=== PATIENT | male | born 1950 | race Caucasian/White ===

== ENCOUNTER 2016-08-23 21:20 | Emergency (ER) | payer MEDICARE, OTHER ==
[~2016-08-23] VITALS: Ht 182.9 cm; Wt 95.0 kg
[2016-08-23 21:27] VITALS: BP 162/86; PULSE 82; RESP 18; TEMP 98.5; O2SAT 95
[2016-08-23] MEDS ORDERED: HYDR-3583 PO (21:35)
[2016-08-23] MEDS ORDERED: DIAZ10 PO (21:35)
[2016-08-23] MEDS ORDERED: ASPI81CH CHEW (21:35)
[2016-08-23] MEDS ORDERED: LEXA20TA PO (21:35)
[2016-08-23] MEDS ORDERED: TETANUS/DIPHTHERIA TOXOID ADULT 0.5 ML VIAL IM ONE (21:45)
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
[2016-08-23] MEDS ORDERED: SODIUM CHLOR 0.9% 1000 ML INJ 1,000 ML IV SCH (21:52)
--- NOTE | 2016-08-23 22:08 | RADRPT ---
EXAM DATE/TIME: 08/23/2016 21:52 [facility] COMPARISON: No previous studies available for comparison. INDICATIONS : Witnessed fall RADIATION DOSE: 69.15 CTDIvol (mGy) MEDICAL HISTORY : Myocardial infarction. Hypertension. SURGICAL HISTORY : None. ENCOUNTER: Initial ACUITY: 1 day PAIN SCALE: 3/10 LOCATION: cranial TECHNIQUE: Multiple contiguous axial images were obtained of the head. Using automated exposure control and adj ustment of the mA and/or kV according to patient size, radiation dose was kept as low as reasonably a chievable to obtain optimal diagnostic quality images. FINDINGS: Noncontrast axial head CT demonstrates the ventricles to be normal in size and configuration with a n ormal sulcal pattern. No acute intracranial hemorrhage, acute cortical infarction, mass or midline sh ift is seen. There is hypodensity within the right basal ganglia which may reflect lacunar infarct ag e uncertain. Posterior fossa structures are unremarkable. Bone windows are unremarkable. CONCLUSION: 1. Lacunar infarct right basal ganglia age uncertain. Saad Hagen MD on August 23, 2016 at 22:05 Board Certified Radiologist. This report was verified electronically.
--- NOTE | 2016-08-23 22:22 | RADRPT ---
EXAM DATE/TIME: 08/23/2016 21:54 [facility] COMPARISON: No previous studies available for comparison. INDICATIONS : Witnessed fall RADIATION DOSE: 35.52 CTDIvol (mGy) MEDICAL HISTORY : Myocardial infarction. Hypertension. SURGICAL HISTORY : Fusion, cervical. ENCOUNTER: Initial ACUITY: 1 day PAIN SCALE: 3/10 LOCATION: neck TECHNIQUE: Volumetric scanning of the cervical spine was performed. Multiplanar reconstructions in the sagittal, coronal and oblique axial planes were performed. Using automated exposure control and adjustment o f the mA and/or kV according to patient size, radiation dose was kept as low as reasonably achievable to obtain optimal diagnostic quality images. FINDINGS: Sagittal images demonstrate normal vertebral body alignment and curvature. The odontoid is intact. Th e occipital condyles and lateral masses of C1 are intact. Axial images were performed from C2-C3 to C7-T1. There is anterior cervical fusion with a plate anteriorly from C4-C6 with posterior fusion at C5-C6. There is osteorathritis involving the atlantoaxial joint with sclerosis and osteophyte format ion. C2-C3: There is mild facet arthritis bilaterally. There is no significant spinal canal stenosis. C3-C4: There is osteophytic ridging along the posterior aspect of vertebral body. There is moderate facet ar thritis on the right. There is mild right sided neural foraminal narrowing. C4-C5: Postsurgical changes as above. There is no significant spinal canal stenosis. C5-C6: Postsurgical changes as above. There is no significant spinal canal stenosis. C6-C7: No significant abnormalities identified. C7-T1: No significant abnormalities identified. CONCLUSION: 1. Postsurgical changes as above. There is no evidence of acute fracture. Saad Hagen MD on August 23, 2016 at 22:17 Board Certified Radiologist. This report was verified electronically.
[2016-08-23 22:25] LABS: AUTOMATED NEUTROPHIL # 3.6 TH/MM3 (1.8-7.7); BASOPHIL % 0.6 % (0.0-2.0); EOSINOPHIL # 0.2 TH/MM3 (0-0.4); EOSINOPHIL % 3.8 % (0.0-4.0); HEMATOCRIT 37.4 % (39.0-51.0); HEMO FLAGS DIFF FINAL; LYMPH % 24.9 % (9.0-44.0); LYMPHOCYTE # 1.5 TH/MM3 (1.0-4.8); MEAN CELL VOLUME 92.8 FL (80.0-100.0); MEAN CORPUSCULAR HEMOGLOBIN 31.4 PG (27.0-34.0); MEAN CORPUSCULAR HGB CONC 33.9 % (32.0-36.0); MONO % 9.8 % (0.0-8.0); NEUT % 60.9 % (16.0-70.0); PLATELET COUNT 159 TH/MM3 (150-450); RED BLOOD COUNT 4.03 MIL/MM3 (4.50-5.90); RED CELL DISTRIBUTION WIDTH 13.4 % (11.6-17.2); WHITE BLOOD COUNT 5.9 TH/MM3 (4.0-11.0)
[2016-08-23 22:30] LABS: APTT (PATIENT) 25.4 SEC (24.3-30.1); PROTHROMBIN TIME - PATIENT 10.6 SEC (9.8-11.6)
--- NOTE | 2016-08-23 22:45 | RADRPT ---
EXAM DATE/TIME: 08/23/2016 22:21 [facility] COMPARISON: No previous studies available for comparison. INDICATIONS : Evaluate lung status. Patient fell. MEDICAL HISTORY : Myocardial infarction. Hypertension. SURGICAL HISTORY : Fusion, Cervical. ENCOUNTER: Initial ACUITY: 1 day PAIN SCORE: Non-responsive. LOCATION: Bilateral chest FINDINGS: The cardiac silhouette is enlarged in transverse diameter. There are findings of congestive heart kalpesh lure with interstitial and alveolar opacity bilaterally. CONCLUSION: 1. Cardiomegaly and findings of congestive heart failure. Saad Hagen MD on August 23, 2016 at 22:43 Board Certified Radiologist. This report was verified electronically.
[2016-08-23 23:04] LABS: BICARBONATE 24.7 MEQ/L (21.0-32.0); MAGNESIUM 2.3 MG/DL (1.5-2.5); POTASSIUM 4.1 MEQ/L (3.5-5.1)
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
[2016-08-24 03:43] VITALS: BP 152/70; PULSE 65; RESP 18; O2SAT 98
[2016-08-24 03:58] LABS: AMPHETAMINE, URINE NEG (NEG); BARBITURATES, URINE NEG (NEG); COCAINE, URINE NEG (NEG)
--- NOTE | 2016-08-24 14:31 | EKG ---
Date Performed: 08/23/2016 Time Performed: 21:31:34 PTAGE: 66 years EKG: Sinus rhythm POSSIBLE INFERIOR MYOCARDIAL INFARCTION Diffuse mild ST elevation, possibly early repolarization ABN ORMAL ECG NO PRIOR TRACING FOR COMPARISON DOCTOR: Rudy Wagner Interpretating Date/Time 08/24/2016 14:30:45
== END 2016-08-24 06:52 | disposition home or self-care (01) ==
LOC: NEPE 21:20
DX: F19.920 Other psychoactive substance use, unspecified with intoxication, uncomplicated (principal); S09.90XA Unspecified injury of head, initial encounter; R94.31 Abnormal electrocardiogram [ECG] [EKG]; I10 Essential (primary) hypertension; E78.00 Pure hypercholesterolemia, unspecified; I25.2 Old myocardial infarction; F17.200 Nicotine dependence, unspecified, uncomplicated; Z79.82 Long term (current) use of aspirin; Z86.59 Personal history of other mental and behavioral disorders; X58.XXXA Exposure to other specified factors, initial encounter
CPT/HCPCS: 70450; 71010; 72125; 80048; 80307; 83735; 84484; 85025; 85610; 85730; 90471; 90714; 93005; 99284; J7030

== ENCOUNTER 2016-11-21 15:39 | Emergency (ER) | payer MEDICARE, OTHER ==
[~2016-11-21] VITALS: Ht 182.9 cm; Wt 92.3 kg
[~2016-11-21 15:39] MED LIST: ASPI81CH CHEW; DIAZ10 PO; HYDR-3583 PO; LEXA20TA PO
[2016-11-21 16:20] VITALS: BP 180/83; PULSE 72; RESP 18; TEMP 98.2; O2SAT 99
[2016-11-21] MEDS ORDERED: TETANUS/DIPHTHERIA TOXOID ADULT 0.5 ML VIAL IM ONE (17:30)
--- NOTE | 2016-11-21 17:31 | PD ---
HPI Chief Complaint: Fall Time Seen by Provider: 17:16 Travel History International Travel<30 days: No Contact w/Intl Traveler<30days: No Traveled to known affect area: No History of Present Illness HPI 66-year-old male complains of headache, facial pain and neck pain. Patient fell on his face 6 days ago. Patient states that he did not loose consciousness. Patient states that he had persistent headache patient pain and neck pain since then. Patient states that he has blurred vision after the fall. Patient states that the blurred vision is getting better since then. Patient has history of chronic neck pain status post neck surgery in the past. Patient denies any chest pain or shortness of breath. Patient denies abdominal pain. Patient denies any focal weakness or numbness of extremity. Patient states that he drinks alcohol frequently. Patient is taking aspirin 81 mg daily , hydrocodone 10, Lexapro and Valium daily. Patient denies any illicit drug abuse. Patient states that he is not up-to-date with TD booster. Patient states that he's had been eating drinking well. Patient states that he has dizziness today. PFSH Past Medical History Anxiety: Yes High Cholesterol: Yes Hypertension: Yes Myocardial Infarction: Yes Past Surgical History Other Surgery: Yes (lung ) Social History Alcohol Use: Yes Tobacco Use: Yes (1 ppd ) Substance Use: Yes (marijuana) Allergies-Medications (Allergen,Severity, Reaction): Coded Allergies: No Known Allergies (Unverified , 08/23/16) Reported Meds & Prescriptions Reported Meds & Active Scripts Active Reported Valium (Diazepam) 10 Mg Tab 15 Mg PO TID PRN Lexapro (Escitalopram Oxalate) 20 Mg Tab 20 Mg PO DAILY Hydrocodone-Acetaminophen 10-325 mg Tab 1 Tab PO Q6H PRN Aspirin 81 Mg Chew 81 Mg CHEW DAILY Review of Systems General / Constitutional: No: Fever Eyes: No: Visual changes HENT: Positive: Headaches, Neck Pain Cardiovascular: No: Chest Pain or Discomfort Respiratory: No: Shortness of Breath Gastrointestinal: No: Abdominal Pain Genitourinary: No: Dysuria Musculoskeletal: No: Pain Skin: No Rash Neurologic: No: Weakness Psychiatric: No: Depression Endocrine: No: Polydipsia Hematologic/Lymphatic: No: Easy Bruising Physical Exam Narrative GENERAL: Well-nourished, well-developed patient. SKIN: Focused skin assessment warm/dry. HEAD: Normocephalic. Multiple abrasions to the forehead the cheek and the nose. Mild ecchymosis noted periorbital area right eye. Mild tenderness on palpation of the nose. No deformity of the nose. No septal hematoma. EYES: No scleral icterus. No injection or drainage. Pupils 2 mm equal reactive. NECK: Supple, trachea midline. No JVD or lymphadenopathy. Mild tenderness on palpation paraspinal areas cervical spine. No midline tenderness. CARDIOVASCULAR: Regular rate and rhythm without murmurs, gallops, or rubs. RESPIRATORY: Breath sounds equal bilaterally. No accessory muscle use. GASTROINTESTINAL: Abdomen soft, non-tender, nondistended. MUSCULOSKELETAL: No cyanosis, or edema. BACK: Nontender without obvious deformity. No CVA tenderness. Neurologic exam: Patient is awake and alert oriented 3. Patient moves all extremity well. No obvious focal neurological deficit. Data Data Last Documented VS Vital Signs Date Time Temp Pulse Resp B/P Pulse Ox O2 Delivery O2 Flow Rate FiO2 11/21/16 17:44 96 11/21/16 16:20 98.2 72 18 180/[address] Brain W/O Iv Contrast(Rout) (11/21/16 17:24) Ct Cerv Spine W/O Contrast (11/21/16 17:24) Ct Facial Bones W/O Iv Cont (11/21/16 17:24) Tetanus/Diphtheria Tox Adult (Tetanus/Di (11/21/16 17:30) Complete Blood Count With Diff (11/21/16 17:28) Basic Metabolic Panel (Bmp) (11/21/16 17:28) Iv Access Insert/Monitor (11/21/16 17:28) Ecg Monitoring (11/21/16 17:28) Oximetry (11/21/16 17:28) Labs Laboratory Tests Test 11/21/16 17:57 White Blood Count 4.1 TH/MM3 Red Blood Count 3.83 MIL/MM3 Hemoglobin 12.6 GM/DL Hematocrit 36.0 % Mean Corpuscular Volume 94.2 FL Mean Corpuscular Hemoglobin 33.0 PG Mean Corpuscular Hemoglobin 35.0 % Concent Red Cell Distribution Width 12.5 % Platelet Count 167 TH/MM3 Mean Platelet Volume 7.4 FL Neutrophils (%) (Auto) 65.6 % Lymphocytes (%) (Auto) 21.4 % Monocytes (%) (Auto) 9.0 % Eosinophils (%) (Auto) 3.6 % Basophils (%) (Auto) 0.4 % Neutrophils # (Auto) 2.7 TH/MM3 Lymphocytes # (Auto) 0.9 TH/MM3 Monocytes # (Auto) 0.4 TH/MM3 Eosinophils # (Auto) 0.1 TH/MM3 Basophils # (Auto) 0.0 TH/MM3 CBC Comment DIFF FINAL Differential Comment Sodium Level 141 MEQ/L Potassium Level 3.8 MEQ/L Chloride Level 106 MEQ/L Carbon Dioxide Level 28.5 MEQ/L Anion Gap 7 MEQ/L Blood Urea Nitrogen 20 MG/DL Creatinine 0.98 MG/DL Estimat Glomerular Filtration 76 ML/MIN Rate Random Glucose 109 MG/DL Calcium Level 8.5 MG/DL MDM Medical Decision Making Medical Screen Exam Complete: Yes Emergency Medical Condition: Yes Interpretation(s) 1833 PM. CBC within normal limit. BMP within normal limit. BUN 20. Differential Diagnosis Differential diagnosis including abrasion, contusion, fracture, intracranial hemorrhage. Narrative Course 66-year-old male with head injury, facial injury, neck injury. Status post fall 6 days ago. TD booster given. Timothy Roy MD Nov 21, 2016 17:31
[2016-11-21 17:44] VITALS: O2SAT 96
[2016-11-21 18:04] LABS: AUTOMATED NEUTROPHIL # 2.7 TH/MM3 (1.8-7.7); BASOPHIL % 0.4 % (0.0-2.0); EOSINOPHIL # 0.1 TH/MM3 (0-0.4); EOSINOPHIL % 3.6 % (0.0-4.0); HEMO FLAGS DIFF FINAL; LYMPH % 21.4 % (9.0-44.0); LYMPHOCYTE # 0.9 TH/MM3 (1.0-4.8); MEAN CELL VOLUME 94.2 FL (80.0-100.0); NEUT % 65.6 % (16.0-70.0); PLATELET COUNT 167 TH/MM3 (150-450); RED BLOOD COUNT 3.83 MIL/MM3 (4.50-5.90); RED CELL DISTRIBUTION WIDTH 12.5 % (11.6-17.2); WHITE BLOOD COUNT 4.1 TH/MM3 (4.0-11.0)
[2016-11-21 18:23] LABS: POTASSIUM 3.8 MEQ/L (3.5-5.1)
[2016-11-21 18:26] LABS: BICARBONATE 28.5 MEQ/L (21.0-32.0)
[2016-11-21 18:34] VITALS: BP 150/72; PULSE 66; O2SAT 95
--- NOTE | 2016-11-21 18:47 | RADRPT ---
EXAM DATE/TIME: 11/21/2016 18:34 [facility] COMPARISON: CT BRAIN W/O CONTRAST, August 23, 2016, 21:52. INDICATIONS : Fell on face. RADIATION DOSE: 62.76 CTDIvol (mGy) MEDICAL HISTORY : Myocardial infarction. Hypertension. SURGICAL HISTORY : Fusion, cervical. ENCOUNTER: Initial ACUITY: 4 - 6 days PAIN SCALE: 3/10 LOCATION: Right cranial TECHNIQUE: Multiple contiguous axial images were obtained of the head. Using automated exposure control and adj ustment of the mA and/or kV according to patient size, radiation dose was kept as low as reasonably a chievable to obtain optimal diagnostic quality images. DICOM format image data is available electro nically for review and comparison. FINDINGS: CEREBRUM: The ventricles are normal for age. No evidence of midline shift, mass lesion, hemorrhage or acute in farction. No extra-axial fluid collections are seen. Subcentimeter old infarct in the right basal ga nglia again noted. POSTERIOR FOSSA: The cerebellum and brainstem are intact. The 4th ventricle is midline. The cerebellopontine angle i s unremarkable. EXTRACRANIAL: The visualized portion of the orbits is intact. SKULL: The calvaria is intact. No evidence of skull fracture. CONCLUSION: No bleed or other acute abnormality. Elder Hugo MD on November 21, 2016 at 18:44 Board Certified Radiologist. This report was verified electronically.
--- NOTE | 2016-11-21 18:55 | RADRPT ---
EXAM DATE/TIME: 11/21/2016 18:34 [facility] COMPARISON: No previous studies available for comparison. INDICATIONS : Fell on face. RADIATION DOSE: 25.78 CTDIvol (mGy) MEDICAL HISTORY : Myocardial infarction. Hypertension. SURGICAL HISTORY : Fusion, cervical. ENCOUNTER: Initial ACUITY: 4 - 6 days PAIN SCORE: 3/10 LOCATION: Right facial TECHNIQUE: Volumetric scanning of the facial bones was performed. Using automated exposure control and adjustme nt of the mA and/or kV according to patient size, radiation dose was kept as low as reasonably achiev able to obtain optimal diagnostic quality images. DICOM format image data is available electronicall y for review and comparison. FINDINGS: ORBITS: The orbital and infraorbital osseous structures are intact. The retroconal structures have a normal configuration. No radiopaque foreign bodies are seen. NASAL BONE: There is a comminuted fracture the tip at the nasion and both sides of the nasal arch. There are coup le millimeters of rightward displacement and the left side of the nasal arch has about 3 mm of depres melva/overlap. ZYGOMATIC ARCHES: Symmetric without evidence of fracture. SINUSES: The maxillary, ethmoid and frontal sinuses are intact. No air-fluid levels seen. NASAL CAVITY: The nasal septum is intact and midline. The lacrimal ducts are intact. SOFT TISSUES: No radiopaque foreign bodies seen. No soft-tissue swelling is seen. INTRACRANIAL: No intracranial air seen. CRIBIFORM PLATE: Grossly intact. CONCLUSION: Comminuted and mildly displaced/depressed fracture of the nose. Elder Hugo MD on November 21, 2016 at 18:52 Board Certified Radiologist. This report was verified electronically.
[2016-11-21 18:59] VITALS: BP 162/78; PULSE 71; RESP 16; O2SAT 96
--- NOTE | 2016-11-21 19:01 | RADRPT ---
EXAM DATE/TIME: 11/21/2016 18:34 [facility] COMPARISON: CT CERVICAL SPINE W/O CONTRAST, August 23, 2016, 21:54. INDICATIONS : Fell on face. RADIATION DOSE: 26.65 CTDIvol (mGy) MEDICAL HISTORY : Myocardial infarction. Hypertension. SURGICAL HISTORY : Fusion, cervical. ENCOUNTER: Initial ACUITY: 4 - 6 days PAIN SCALE: 3/10 LOCATION: neck TECHNIQUE: Volumetric scanning of the cervical spine was performed. Multiplanar reconstructions in the sagittal, coronal and oblique axial planes were performed. Using automated exposure control and adjustment o f the mA and/or kV according to patient size, radiation dose was kept as low as reasonably achievable to obtain optimal diagnostic quality images. DICOM format image data is available electronically f or review and comparison. FINDINGS: VERTEBRAE: Normal vertebral body height. ALIGNMENT: No evidence of subluxation. There is moderate to severe osteoarthritis anteriorly at C1/C2. C1 ring is discontinuous posteriorly, unchanged and appears developmental. Changes of discectomy and fusion procedure with anterior instrumentation again seen at C4/C5 and C5/C 6, both levels solidly bridged in unchanged, normal alignment. There is bilateral posterior instrumen tation at C5/C6. Mild disc space narrowing and moderate uncovertebral and facet osteoarthritis seen at C2/C3 and C3/C4 . There is mild disc space narrowing and mild bilateral uncovertebral and facet osteoarthritis at C6/ C7. CONCLUSION: 1. No fracture or subluxation of the cervical spine. 2. Focal discontinuity posteriorly of the C1 ring, unchanged and appears developmental. 3. Surgical and chronic degenerative changes as above. Elder Hugo MD on November 21, 2016 at 18:56 Board Certified Radiologist. This report was verified electronically.
--- NOTE | 2016-11-21 19:36 | PD ---
Physical Exam Date Seen by Provider: Nov 21, 2016 Time Seen by Provider: 19:10 Narrative Accepted in transfer of care from Dr. Roy Data Data Last Documented VS Vital Signs Date Time Temp Pulse Resp B/P Pulse Ox O2 Delivery O2 Flow Rate FiO2 11/21/16 19:00 16 96 Room Air 11/21/16 18:59 71 162/78 11/21/16 16:[address] Brain W/O Iv Contrast(Rout) (11/21/16 17:24) Ct Cerv Spine W/O Contrast (11/21/16 17:24) Ct Facial Bones W/O Iv Cont (11/21/16 17:24) Tetanus/Diphtheria Tox Adult (Tetanus/Di (11/21/16 17:30) Complete Blood Count With Diff (11/21/16 17:28) Basic Metabolic Panel (Bmp) (11/21/16 17:28) Iv Access Insert/Monitor (11/21/16 17:28) Ecg Monitoring (11/21/16 17:28) Oximetry (11/21/16 17:28) Labs Laboratory Tests Test 11/21/16 17:57 White Blood Count 4.1 TH/MM3 Red Blood Count 3.83 MIL/MM3 Hemoglobin 12.6 GM/DL Hematocrit 36.0 % Mean Corpuscular Volume 94.2 FL Mean Corpuscular Hemoglobin 33.0 PG Mean Corpuscular Hemoglobin 35.0 % Concent Red Cell Distribution Width 12.5 % Platelet Count 167 TH/MM3 Mean Platelet Volume 7.4 FL Neutrophils (%) (Auto) 65.6 % Lymphocytes (%) (Auto) 21.4 % Monocytes (%) (Auto) 9.0 % Eosinophils (%) (Auto) 3.6 % Basophils (%) (Auto) 0.4 % Neutrophils # (Auto) 2.7 TH/MM3 Lymphocytes # (Auto) 0.9 TH/MM3 Monocytes # (Auto) 0.4 TH/MM3 Eosinophils # (Auto) 0.1 TH/MM3 Basophils # (Auto) 0.0 TH/MM3 CBC Comment DIFF FINAL Differential Comment Sodium Level 141 MEQ/L Potassium Level 3.8 MEQ/L Chloride Level 106 MEQ/L Carbon Dioxide Level 28.5 MEQ/L Anion Gap 7 MEQ/L Blood Urea Nitrogen 20 MG/DL Creatinine 0.98 MG/DL Estimat Glomerular Filtration 76 ML/MIN Rate Random Glucose 109 MG/DL Calcium Level 8.5 MG/DL [facility] Medical Record Reviewed: Yes Supervised Visit with JESSIE: No Interpretation(s) Last Impressions Maxillofacial CT 11/21/161723 Signed Impressions: Service Date/Time: Monday, November 21, 2016 18:34 - CONCLUSION: Comminuted and mildly displaced/depressed fracture of the nose. Elder Hugo MD Head CT 11/21/161723 Signed Impressions: Service Date/Time: Monday, November 21, 2016 18:34 - CONCLUSION: No bleed or other acute abnormality. Elder Hugo MD Cervical Spine CT 11/21/161723 Signed Impressions: Service Date/Time: Monday, November 21, 2016 18:34 - CONCLUSION: 1. No fracture or subluxation of the cervical spine. 2. Focal discontinuity posteriorly of the C1 ring, unchanged and appears developmental. 3. Surgical and chronic degenerative changes as above. Elder Hugo MD Differential Diagnosis Accepted in transfer of care from Dr. Roy; please refer to his dictation Narrative Course Accepted in transfer of care from Dr. Roy; follow up on pending diagnostics and disposition Lab values grossly within acceptable normal range; imaging studies revealed no acute bony abnormalities except for mildly displaced/depressed nasal fracture. Patient's injuries reportedly occurred 6 days ago and presents with healing abrasions to the face. Patient has no epistaxis. Patient's tetanus status is updated. Patient is informed of imaging results and told not to blow his nose. 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 Patient is encouraged to follow head injury precautions 24 hours. Diagnosis Primary Impression: Nasal bone fracture Qualified Code: S02.2XXA - Closed fracture of nasal bone, initial encounter Additional Impressions: Head injury Qualified Code: S09.90XA - Injury of head, initial encounter Cervical strain Qualified Code: S16.1XXA - Strain of neck muscle, initial encounter Referrals: Ear / Nose / Throat Specialist call for appointment faculty i on call medical assistant MD: Dr Nazario --call office to schedule follow up Family Practice Physician 2 days Patient Instructions: General Instructions Additional Instruction: Follow head injury precautions 24 hours Follow-up with your primary care provider call office name to schedule follow- up appointment this week Follow-up with deaf/hard of hearing specialist call office to schedule follow-up ; on-call physician is Dr. Nazario or make follow-up per year primary care providers ENT recommendation Increase fluid hydration with non-alcoholic beverages Return to the emergency department for any concerns or change in condition Disposition: 01 DISCHARGE HOME Condition: Stable Mary Jo Chacko MD Nov 21, 2016 19:36
== END 2016-11-21 19:55 | disposition home or self-care (01) ==
LOC: PHED 15:39
DX: S02.2XXA Fracture of nasal bones, initial encounter for closed fracture (principal); S16.1XXA Strain of muscle, fascia and tendon at neck level, initial encounter; R42 Dizziness and giddiness; W19.XXXA Unspecified fall, initial encounter; Y93.9 Activity, unspecified; Y92.9 Unspecified place or not applicable; I25.2 Old myocardial infarction; I10 Essential (primary) hypertension; F17.210 Nicotine dependence, cigarettes, uncomplicated
CPT/HCPCS: 70450; 70486; 72125; 80048; 85025; 90471; 90714

== ENCOUNTER 2018-01-11 13:06 | Observation (INO) ==
[2018-01-11 14:10] LABS: Baso % (Auto) 0.2 % (0.0-2.0); Eos # (Auto) 0.1 th/mm3 (0.0-0.4); Eos % (Auto) 1.9 % (0.0-4.0); Hematocrit 37.9 % (39.0-51.0); Lymph # (Auto) 0.9 th/mm3 (1.0-4.8); Lymph % (Auto) 14.7 % (9.0-44.0); Mean Corpuscular HGB Conc 34.3 % (32.0-36.0); Mean Corpuscular Hemoglobin 33.3 pg (27.0-34.0); Mean Platelet Volume 7.8 fL (7.0-11.0); Mono # (Auto) 0.6 th/mm3 (0.0-0.9); Mono % (Auto) 9.9 % (0.0-8.0); Neut # (Auto) 4.4 th/mm3 (1.8-7.7); Neut % (Auto) 73.3 % (16.0-70.0); Platelet Count 135 th/mm3 (150-450); Red Blood Count 3.91 mil/mm3 (4.50-5.90); Red Cell Distribution Width 12.9 % (11.6-17.2)
[2018-01-11 14:29] LABS: Albumin 3.2 g/dL (3.4-5.0); Anion Gap 8 meq/L (5-15); Aspartate Aminotransferase 26 U/L (15-37); Blood Urea Nitrogen 14 mg/dL (7-18); Calcium 8.8 mg/dL (8.5-10.1); Carbon Dioxide 27.2 meq/L (21.0-32.0); Chloride 102 meq/L (98-107); Glomerular Filtration Rate 82 mL/min (>89); Glucose,Random 133 mg/dL (74-106); Potassium 4.2 meq/L (3.5-5.1); Sodium 137 meq/L (136-145)
[2018-01-11 14:31] LABS: Alanine Aminotransferase 31 U/L (12-78)
[2018-01-11 14:34] LABS: Alkaline Phosphatase 151 U/L (45-117); Total Protein 6.9 g/dL (6.4-8.2)
--- NOTE | 2018-01-11 16:28 | XR ---
EXAM DATE: 01/11/2018 1:40 PM EDT AGE/SEX: 67 years / Male INDICATIONS: . Bite on patients right posterior shoulder. CLINICAL DATA: This is the patient's initial encounter. Patient reports that signs and symptoms have been present for 2 days and indicates a pain score of 3/10. MEDICAL/SURGICAL HISTORY: . Myocardial infarction. Hypertension. . Fusion, cervical. COMPARISON: POI, XR CHEST PA AND LAT, 08/14/2017. . FINDINGS: There is stable posterior eventration of the right diaphragm. Mild patchy interstitial prominence. No evidence of focal alveolar consolidation or significant effusion. Cardiac contours are satisfactory. Thoracic skeleton is grossly intact. CONCLUSION: No acute disease Electronically signed by: Elder Guillen MD 01/11/2018 4:26 PM EDT
[2018-01-11] MEDS ORDERED: Tetanus/Diphtheria Toxoid Adult Vaccine Inj 0.5 ML Vial IM ONE (18:17)
--- NOTE | 2018-01-11 18:23 | ED ---
HPI General Chief Complaint: Chest Pain Stated Complaint: bite Time Seen by Provider: 01/11/18 16:47 Source: patient, RN notes reviewed and old records reviewed Mode of arrival: ambulatory Limitations: no limitations History of Present Illness HPI narrative: 67-year-old male presenting with complaint of left chest pressure since 4 AM patient stated that he experienced a bug bite on his right upper back yesterday and now he is having hot flashes nausea and vomiting. He denies any shortness of breath no nausea vomiting. No mouth swelling. No hives or pruritus. MD complaint: Reports chest pain STEMI Alert: No Onset (ago): hour(s) (12) Duration: constant Onset: during rest Pain location: Reports left chest Severity: mild Severity scale (1-10): 4 Quality: Reports other (Pressure) Pain radiation: Reports LUE Relieving factors: nothing Exacerbating factors: nothing Associated symptoms: Reports nausea and vomiting Treatments prior to arrival chest pain: Reports none and other (took benadryl without any relief) Related Data Home Medications Medication Instructions Recorded Confirmed atorvastatin 20 mg PO DAILY 01/11/18 01/11/18 Allergies Allergy/AdvReac Type Severity Reaction Status Date / Time tramadol Allergy Intermediate Swelling Verified 01/11/18 18:07 Review of Systems ROS: all other systems reviewed are negative [facility] Medical History Medical History Cervical vertebral fusion (Acute) FHx: cholecystectomy (Acute) High cholesterol (Acute) Surgical History Surgical History H/O knee surgery (Acute) H/O shoulder surgery (Acute) History of lung surgery (Acute) S/P hernia surgery (Acute) Social History Social History Substance History: No History of Abuse Second Hand Smoke Exposure: Yes Smoking Status: Current every day smoker Tobacco Type: Cigarettes How Often Do You Have a Drink Containing Alcohol: 4 or more times a week Recent Travel in [facility] within the Last 8 Weeks: No Recent Out of Country Travel within the Last 8 Weeks: No Immunization History Tetanus Immunization: Unsure Exam Narrative Exam Narrative: GENERAL: Alert and oriented in no distress SKIN: Focused skin assessment warm/dry. There is a punctate wound on the left upper back without any surrounding erythema cellulitis or induration no purulent discharge. HEAD: Atraumatic. Normocephalic. EYES: Pupils equal and round. No scleral icterus. No injection or drainage. ENT: No nasal bleeding or discharge. Mucous membranes pink and moist. NECK: Trachea midline. No JVD. CARDIOVASCULAR: Regular rate and rhythm. No murmur appreciated. RESPIRATORY: No accessory muscle use. Clear to auscultation. Breath sounds equal bilaterally. GASTROINTESTINAL: Abdomen soft, non-tender, nondistended. Hepatic and splenic margins not palpable. MUSCULOSKELETAL: No obvious deformities. No clubbing. No cyanosis. No edema. NEUROLOGICAL: Awake and alert. No obvious cranial nerve deficits. Motor grossly within normal limits. Normal speech. PSYCHIATRIC: Appropriate mood and affect; insight and judgment normal. Course Hospital Course: Patient had a cardiac workup received aspirin p.o., had his tetanus update and was placed to observation chest pain unit due to chest pain. Initial Documented Vital Signs Temperature 98.2 F 01/11/18 13:21 Pulse Rate 82 01/11/18 13:21 Respiratory Rate 18 01/11/18 13:21 Blood Pressure 144/68 H 01/11/18 13:21 Pulse Oximetry 96 01/11/18 13:21 Last Documented Vital Signs Temperature 98.2 F 01/11/18 13:21 Pulse Rate 69 01/11/18 18:00 Respiratory Rate 18 01/11/18 18:00 Blood Pressure 112/72 01/11/18 18:00 Pulse Oximetry 97 01/11/18 18:00 Medical Decision Making MDM Narrative Medical decision making narrative: We will. Unlikely that the cause of his chest tightness is secondary to the back bite on his left upper back. No signs of allergic reaction or anaphylaxis hemodynamically stable. He is a chronic pain patient taking oxycodone will give him some here in the ED and update his tetanus per Medical Screen Exam Complete: Yes Emergency Medical Condition: Yes Lab Data Lab results reviewed: Yes I reviewed the patient's lab results. Result diagrams: 01/11/18 13:48 01/11/18 13:48 Lab Results 01/11/18 01/11/18 Range/Units 13:48 13:48 WBC 6.0 (4.0-11.0) th/mm3 RBC 3.91 L (4.50-5.90) mil/mm3 Hgb 13.0 (13.0-17.0) gm/dL Hct 37.9 L (39.0-51.0) % MCV 97.0 (80.0-100.0) fL MCH 33.3 (27.0-34.0) pg MCHC 34.3 (32.0-36.0) % RDW 12.9 (11.6-17.2) % Plt Count 135 L (150-450) th/mm3 MPV 7.8 (7.0-11.0) fL Neut % (Auto) 73.3 H (16.0-70.0) % Lymph % (Auto) 14.7 (9.0-44.0) % Stephens % (Auto) 9.9 H (0.0-8.0) % Eos % (Auto) 1.9 (0.0-4.0) % Baso % (Auto) 0.2 (0.0-2.0) % Neut # (Auto) 4.4 (1.8-7.7) th/mm3 Lymph # (Auto) 0.9 L (1.0-4.8) th/mm3 [place] # (Auto) 0.6 (0.0-0.9) th/mm3 Eos # (Auto) 0.1 (0.0-0.4) th/mm3 Baso # (Auto) 0.0 (0.0-0.2) th/mm3 WBC Differential . Differential Comment Auto diff final Sodium 137 (136-145) meq/L Potassium 4.2 (3.5-5.1) meq/L Chloride 102 (98-107) meq/L Carbon Dioxide 27.2 (21.0-32.0) meq/L Anion Gap 8 (5-15) meq/L BUN 14 (7-18) mg/dL Creatinine 0.92 (0.60-1.30) mg/dL Estimated GFR 82 L (>89) mL/min Random Glucose 133 H (74-106) mg/dL Calcium 8.8 (8.5-10.1) mg/dL Total Bilirubin 0.3 (0.2-1.0) mg/dL AST 26 (15-37) U/L ALT 31 (12-78) U/L Alkaline Phosphatase 151 H (45-117) U/L Troponin I Less than 0.02 L (0.02-0.05) ng/mL Total Protein 6.9 (6.4-8.2) g/dL Albumin 3.2 L (3.4-5.0) g/dL Imaging Data Radiologist's impression: Chest X-Ray 01/11/18 13:40 CONCLUSION: No acute disease Discharge Plan Discharge Disposition Patient Disposition: 30 Still Patient Discharge Condition Condition: Good Discharge Details Diagnosis: Atypical chest pain, Insect sting Physicians Team ED Provider: Teofilo Wells Primary Care Provider: Saad Bonilla Attending Provider: Rudy Wagner Status ED Status: Admitted Observation Patient
[2018-01-11 20:15] LABS: Creatine Kinase 170 U/L (39-308)
[2018-01-11] MEDS ORDERED: oxyCODONE/Acetaminophen 10/325 Tablet PO ONE (20:27)
[2018-01-12 00:16] LABS: Creatine Kinase 104 U/L (39-308)
[2018-01-12 03:22] LABS: Creatine Kinase 97 U/L (39-308)
[2018-01-12] MEDS ORDERED: oxyCODONE/Acetaminophen 10/325 Tablet PO PRN (07:49)
[2018-01-12] MEDS ORDERED: diazePAM 5 MG Tablet PO PRN (07:49)
[2018-01-12 08:16] VITALS: BP 147/61; RESP 16; TEMP 97.9; O2SAT 97
[2018-01-12 08:55] LABS: Creatine Kinase 86 U/L (39-308)
[2018-01-12] MEDS ORDERED: Escitalopram 10 MG Tablet PO SCH (09:00)
--- NOTE | 2018-01-12 11:30 | P.HPCA ---
History of Present Illness Primary Care Physician: Saad Bonilla MD Chief Complaint: Chest pain History of Present Illness: This is a 67-year-old male with history of chronic neck pain, hypertension, hyperlipidemia, and reported history of CAD that had a heart catheterization about 4 years ago with angioplasty without stenting presents to ED complaining of left-sided chest pressure began yesterday while moving around at home. Was 1 out of 10. He was not short of breath nauseous or diaphoretic. When he was really concerned about was a bug bite on his right upper back. States he felt a bug bite him and now has a tender area back there. Initially was not complaining of chest discomfort until asked in the ED. States he had a cardiac evaluation 4 years ago. States he had a heart catheterization with angioplasty without stenting. Has had no cardiac evaluation since. Denies fevers or chills. Denies chest discomfort at this time. Patient has been smoking 1 pack a series daily for the last year. Prior to that he had quit for 33 years and prior that he smoked 2 pack a day for 10 years. He has an average 3 beers per day. Denies illicit drug use. States that his father at age 48 from myocardial infarction and his brother at age 39 of an NH. - Diagnosis (1) Chest pain (2) Bug bite (3) Hypertension (4) Hyperlipidemia (5) Tobacco abuse (6) History of coronary artery disease Review of Systems General: Patient denies fevers, chills, and recent travel. HEENT: Patient denies headache, sore throat, difficulty swallowing. Cardiovascular: Has the chest discomfort as mentioned above. Denies sensation of heart beating rapidly or irregularly. No syncope. Denies diaphoresis. Respiratory: Denies shortness of breath or inspirational chest discomfort. Denies coughing wheezing or hemoptysis. GI: Patient denies nausea, vomiting, diarrhea, abdominal pain, bloody stools. Musculoskeletal: Patient denies joint pain or edema. Denies calf pain or edema. Neurovascular: Patient denies numbness, tingling, weakness in extremities. Denies headache. Endocrine: Denies polyuria and polydipsia. Hematologic: Denies easy bruising. Skin: Denies rash or itching. PMFSH - History History Provided By: Patient - Medical History Medical History: Medical History (Last Reviewed 01/11/18 @ 18:20 by Teofilo Wells DO) Cervical vertebral fusion FHx: cholecystectomy High cholesterol - Surgical History Surgical History: Surgical History (Last Reviewed 01/11/18 @ 18:20 by Teofilo Wells DO) H/O knee surgery H/O shoulder surgery History of lung surgery S/P hernia surgery - Tobacco History Second Hand Smoke Exposure: Yes Tobacco Use In Past 30 Days: Yes Smoking Status: Heavy tobacco smoker Tobacco Type: Cigarettes - Alcohol History How Often Do You Have a Drink Containing Alcohol: 4 or more times a week - Substance Use History Substance History: No History of Abuse - Travel History Recent Travel in the [place] Within the Last 8 Weeks: No Recent Travel Out of the Country Within the Last 8 Weeks: No - Immunization History Tetanus Immunization: Unsure Medications and Allergies Active Medications: Active Medications Atorvastatin Calcium (Lipitor) 20 mg PO DAILY [facility] Last Admin: 01/12/18 09:10 Dose: 20 mg Diazepam (Valium) 5 mg PO TID PRN PRN Reason: Anxiety Last Admin: 01/12/18 11:02 Dose: 5 mg Escitalopram Oxalate (Lexapro) 10 mg PO DAILY [facility] Last Admin: 01/12/18 09:10 Dose: 10 mg Multivitamins (Theragran) 1 tab PO DAILY [facility] Last Admin: 01/12/18 09:10 Dose: 1 tab Oxycodone/Acetaminophen (Percocet 10/325 Mg) 1 tab PO Q6H PRN PRN Reason: PAIN SCALE 6 TO 10 Last Admin: 01/12/18 09:09 Dose: 1 tab Sodium Chloride (Ns Flush) 2 ml IV.FLUSH BID [facility] Last Admin: 01/12/18 09:11 Dose: 2 ml Sodium Chloride (Ns Flush) 2 ml IV.FLUSH PRN PRN PRN Reason: FLUSH AFTER USING IV ACCESS Last Admin: 01/11/18 18:52 Dose: 2 ml Zinc Acetate/Diphenhydramine (Benadryl 2% Cream) 1 applicatio TOPICAL ONCE ONE Stop: 01/12/18 11:01 Allergies Allergy/AdvReac Type Severity Reaction Status Date / Time tramadol Allergy Intermediate Swelling Verified 01/11/18 18:07 Home Medications Medication Instructions Recorded Confirmed Type atorvastatin 20 mg PO DAILY 01/11/18 01/11/18 History cyanocobalamin (vitamin B-12) 2,500 mcg SUBLINGUAL DAILY 01/12/18 01/12/18 History [Vitamin B-12] diazepam 5 mg PO TID PRN 01/12/18 01/12/18 History escitalopram oxalate [Lexapro] 10 mg PO DAILY 01/12/18 01/12/18 History multivitamin 1 tab PO QAM 01/12/18 01/12/18 History omega 4-mux-qwn-fish oil [Fish Oil] 1,000 mg PO QDRHS 01/12/18 01/12/18 History oxycodone-acetaminophen 1 tab PO Q4H PRN 01/12/18 01/12/18 History Exam Vital signs: Vital Signs 01/11/18 13:21 01/11/18 18:00 01/11/18 19:00 Temperature 98.2 F Pulse Rate 82 69 79 Respiratory Rate 18 18 18 Blood Pressure 144/68 H 112/72 154/79 H Pulse Oximetry 96 97 97 01/11/18 19:02 01/11/18 19:38 01/11/18 20:00 Temperature 99.0 F Pulse Rate 79 85 Respiratory Rate 20 18 Blood Pressure 159/68 H 137/69 Pulse Oximetry 96 98 01/11/18 21:00 01/12/18 00:00 01/12/18 00:44 Temperature 98.7 F Pulse Rate 77 77 Respiratory Rate 16 16 Blood Pressure 129/61 Pulse Oximetry 95 01/12/18 00:49 01/12/18 04:23 01/12/18 08:00 Temperature 97.5 F L 97.9 F Pulse Rate 75 68 Respiratory Rate 18 16 Blood Pressure 158/73 H 147/61 H Pulse Oximetry 94 L 98 97 Intake & Output 01/11/18 01/12/18 01/12/18 18:59 06:59 18:59 Weight 92.986 kg Other: # Voids 2 Narrative: GENERAL: This is a well-nourished, well-developed patient, in no apparent distress. Patient speaks in clear complete sentences. Patient is pleasant. HEENT: Head is atraumatic and normocephalic. Neck is supple without lymphadenopathy and trachea is midline. No JVD or carotid bruits. CARDIOVASCULAR: Regular rate and rhythm without murmurs, gallops, or rubs. RESPIRATORY: Clear to auscultation. Breath sounds equal bilaterally. No wheezes , rales, or rhonchi. Chest wall is nontender. No use of accessory muscles. GASTROINTESTINAL: Abdomen is nontender, nondistended. Abdomen soft. No obvious pulsatile mass or bruit. No CVA tenderness. Strong femoral pulses bilaterally. Normal bowel sounds in all quadrants. MUSCULOSKELETAL: Patient is moving upper and lower extremities freely. No calf tenderness or edema, no Homans sign. Strong pulses in upper and lower extremities. NEUROLOGICAL: Patient is alert and oriented. Cranial nerves 2-12 are grossly intact. No focal deficits and speech is clear. SKIN: Small punctate wound to right upper back without any surrounding erythema , induration, or drainage. Results 01/11/18 13:48 01/11/18 13:48 Cardiac Enzymes 01/11/18 01/11/18 01/11/18 Range/Units 13:48 18:45 23:45 AST 26 (15-37) U/L Troponin I Less than 0.02 L Less than 0.02 L Less than 0.02 L (0.02-0.05) ng/mL 01/12/18 01/12/18 Range/Units 02:00 07:00 AST (15-37) U/L Troponin I Less than 0.02 L Less than 0.02 L (0.02-0.05) ng/mL CBC 01/11/18 Range/Units 13:48 WBC 6.0 (4.0-11.0) th/mm3 RBC 3.91 L (4.50-5.90) mil/mm3 Hgb 13.0 (13.0-17.0) gm/dL Hct 37.9 L (39.0-51.0) % Plt Count 135 L (150-450) th/mm3 Neut # (Auto) 4.4 (1.8-7.7) th/mm3 Lymph # (Auto) 0.9 L (1.0-4.8) th/mm3 [place] # (Auto) 0.6 (0.0-0.9) th/mm3 Eos # (Auto) 0.1 (0.0-0.4) th/mm3 Baso # (Auto) 0.0 (0.0-0.2) th/mm3 Comprehensive Metabolic Panel 01/11/18 Range/Units 13:48 Sodium 137 (136-145) meq/L Potassium 4.2 (3.5-5.1) meq/L Chloride 102 (98-107) meq/L Carbon Dioxide 27.2 (21.0-32.0) meq/L BUN 14 (7-18) mg/dL Creatinine 0.92 (0.60-1.30) mg/dL Calcium 8.8 (8.5-10.1) mg/dL AST 26 (15-37) U/L ALT 31 (12-78) U/L Alkaline Phosphatase 151 H (45-117) U/L Total Protein 6.9 (6.4-8.2) g/dL Albumin 3.2 L (3.4-5.0) g/dL Intake and Output 01/11/18 01/12/18 01/12/18 22:59 06:59 14:59 Other: # Voids 2 - Imaging and Cardiology Imaging: Impressions Chest X-Ray 01/11/18 13:40 CONCLUSION: No acute disease EKG interpretations - EKG EKG shows: sinus rhythm (EKGs are sinus rhythm without significant ST segment depressions or elevations.) Caprini VTE Risk Assessment Caprini VTE Risk Assessment: Moderate/High Risk (score >= 2) Caprini Risk Assessment Model: Point Value = 1 Point Value = 2 Point Value = 3 Point Value = 5 Age 41-60 Minor surgery BMI > 25 kg/m2 Swollen legs Varicose veins or History of unexplained or recurrent spontaneous Oral contraceptives or hormone replacement Sepsis (< 1 month) Serious lung disease, including pneumonia (< 1 month) Abnormal pulmonary function Acute myocardial infarction Congestive heart failure (< 1 month) History of inflammatory bowel disease Medical patient at bed rest Age 61-74 Arthroscopic surgery Major open surgery (> 45 min) Laparoscopic surgery (> 45 min) Malignancy Confined to bed (> 72 hours) Immobilizing plaster cast Central venous access Age >= 75 History of VTE Family history of VTE Factor V Leiden Prothrombin [id number] Lupus anticoagulant Anticardiolipin antibodies Elevated serum homocysteine Heparin-induced thrombocytopenia Other congenital or acquired thrombophilia Stroke (< 1 month) Elective arthroplasty Hip, pelvis, or leg fracture Acute spinal cord injury (< 1 month) Prophylaxis Regimen: Total Risk Factor Score Risk Level Prophylaxis Regimen 0-1 Low Early ambulation 2 Moderate Order ONE of the following: *Sequential Compression Device (SCD) *Heparin 5000 units SQ BID 3-4 Higher Order ONE of the following medications: *Heparin 5000 units SQ TID *Enoxaparin/Lovenox 40 mg SQ daily (WT < 150 kg, CrCl > 30 mL/min) *Enoxaparin/Lovenox 30 mg SQ daily (WT < 150 kg, CrCl > 10-29 mL/min) *Enoxaparin/Lovenox 30 mg SQ BID (WT < 150 kg, CrCl > 30 mL/min) AND/OR *Sequential Compression Device (SCD) 5 or more Highest Order ONE of the following medications: *Heparin 5000 units SQ TID (Preferred with Epidurals) *Enoxaparin/Lovenox 40 mg SQ daily (WT < 150 kg, CrCl > 30 mL/min) *Enoxaparin/Lovenox 30 mg SQ daily (WT < 150 kg, CrCl > 10-29 mL/min) *Enoxaparin/Lovenox 30 mg SQ BID (WT < 150 kg, CrCl > 30 mL/min) AND *Sequential Compression Device (SCD) Assessment and Plan - Assessment (1) Chest pain Code(s): R07.9 - Chest pain, unspecified Status: Acute (2) Bug bite Code(s): W57.XXXA - Bitten or stung by nonvenomous insect and other nonvenomous arthropods, initial encounter Status: Acute (3) Hypertension Code(s): I10 - Essential (primary) hypertension Status: Acute (4) Hyperlipidemia Code(s): E78.5 - Hyperlipidemia, unspecified Status: Acute (5) Tobacco abuse Code(s): Z72.0 - Tobacco use Status: Acute (6) History of coronary artery disease Code(s): Z86.79 - Personal history of other diseases of the circulatory system Status: Acute - Plan * Chest pain: Patient has had serial cardiac enzymes and EKGs for ruling out purposes. He was seen by Dr. Davalos cardiology in the chest pain center. States he has history of CAD. This will be reassessed with a chemical stress test. Patient be discharged home if his Lexiscan is nonischemic with instructions to follow-up with PCP and return to ED for interval issues. * History of CAD: This will be reassessed with stress test. * Hypertension: Continue medication. * Hyperlipidemia: Continue medication. * Tobacco abuse: Patient has been counseled on importance of smoking cessation. * Bug bite: No obvious signs of infection. Patient continue to monitor and follow-up with PCP. Patient is stable at this time. He is agreeable to this plan. H&P: Quality - VTE Deep Vein Thrombosis/Pulmonary Embolism Present on Admission: Yes
[2018-01-12] MEDS ORDERED: Regadenoson Inj 0.4 MG/5 ML Syringe IV.PUSH ONE (11:33)
[2018-01-12 11:48] VITALS: PULSE 73
[2018-01-12] MEDS ORDERED: diphenhydrAMINE 2%/Zinc Cream 30 GM Tube TOPICAL ONE (13:00)
--- NOTE | 2018-01-12 13:44 | ECG ---
Date Performed: 01/11/2018 Time Performed: 18:47:08 PTAGE: 67 years EKG: Sinus rhythm WITH OCCASIONAL SUPRAVENTRICULAR PREMATURE COMPLEXES BORDERLINE ECG PREVIOUS TRACING : 01/11/2018 13.47 DOCTOR: Jason Davalos Interpretating Date/Time 01/12/2018 13:43:27
--- NOTE | 2018-01-12 13:45 | ECG ---
Date Performed: 01/11/2018 Time Performed: 13:47:10 PTAGE: 67 years EKG: Sinus rhythm WITH OCCASIONAL SUPRAVENTRICULAR PREMATURE COMPLEXES BORDERLINE ECG PREVIOUS TRACING : 08/23/2016 21.31 Since previous tracing, no significant change noted DOCTOR: Jason Davalos Interpretating Date/Time 01/12/2018 13:44:54
--- NOTE | 2018-01-12 14:31 | NM ---
EXAM DATE: 01/12/2018 11:02 AM EDT AGE/SEX: 67 years / Male INDICATIONS:Angina. . Left chest pain. CLINICAL DATA: This is the patient's initial encounter. Patient reports that signs and symptoms have been present for 1 day and indicates a pain score of 2/10. MEDICAL/SURGICAL HISTORY: Hypercholesterolemia. Cholecystectomy. COMPARISON: No prior exams available for comparison. DOSE: 8.8 mCi Tc 99m Myoview at rest 26.7 mCi [id number] at stress 0.4 mg Lexiscan STRESS SYMPTOMS: Chest pressure, lightheadedness and nausea. EJECTION FRACTION: 70 % TECHNIQUE: The patient underwent pharmacologic stress with infusion of prescribed dose. Continuous ECG tracing was monitored during stress. Gated SPECT imaging was performed after stress and conventi onal SPECT imaging was performed at rest. The examination was performed on a SPECT/CT scanner, both attenuation and non-corrected datasets were reviewed. FINDINGS: Distribution: The maximum perfused segment at stress is in the septal wall. Perfusion Study: The pattern of perfusion at stress is within normal limits. Gated Study: There are intact wall motion and wall thickening without hypokinetic or dyskinetic segm ents. The ejection fraction is calculated at 70%. RISK CATEGORY: Low (<1% Annual Motality Rate) CONCLUSION: 1. Unremarkable myocardial perfusion study. Electronically signed by: Garret Aguilar MD 01/12/2018 2:30 PM EDT
--- NOTE | 2018-01-14 06:52 | ECG ---
Date Performed: 01/12/2018 Time Performed: 02:51:04 PTAGE: 67 years EKG: Sinus rhythm WITH SINUS ARRHYTHMIA ABNORMAL ECG PREVIOUS TRACING : 01/11/2018 18.47 Since previous tracing, no significant change noted DOCTOR: Jason Davalos Interpretating Date/Time 01/14/2018 06:51:16
--- NOTE | 2018-01-16 06:55 | TR ---
Date Performed: 01/12/2018 Time Performed: 12:56:31 DOCTOR: Connie Messer DRUG LIST: CLINICAL HISTORY: REASON FOR TEST: CHEST PAIN REASON FOR ENDING: OBSERVATION: CONCLUSION: Lexiscan stress test was performed under standard four minute protocol. Radionuclid e was injected one minute prior to ending the test. No electrocardiographic abormalities were present to suggest ischemia. Nuclear imaging and interpretation are pending. COMMENTS: Lexiscan stress test was performed under standard four minute protocol. Radionuclide was injected one minute prior to ending the test. No electrocardiographic abormalities were present t o suggest ischemia. Nuclear imaging and interpretation are pending.
== END 2018-01-12 15:39 | disposition home or self-care (01) ==
LOC: NEDA 13:06 → NEPC 13:06 → NEDA 20:57 → NEPHCDU 21:02
PROVIDERS: ADMIT Internal Medicine Interventional Cardiology; ATTEND Internal Medicine Interventional Cardiology